=== PATIENT | female | born 1940 | race American Indian/Alaskan Native ===

== ENCOUNTER 2017-05-03 08:29 | Outpatient (CLI) | payer MEDICARE ==
--- NOTE | 2017-05-04 13:19 | PET Report ---
PET SB TO MT SUBSEQUENT: HISTORY: Restaging of breast cancer. TECHNIQUE: 13.0 millicuries F-18 FDG was administered intravenously. Noncontrast CT images and PET images were obtained from the skull base to the proximal thighs. Fused images were reviewed on a workstation. The patient's blood glucose level measured 124. COMPARISON: 05/05/14. FINDINGS: BRAIN: physiologic FDG uptake in the imaged brain. NECK: physiologic FDG uptake. MEDIASTINUM: physiologic FDG uptake. CHEST WALL: Stable right mastectomy changes. No recurrent chest wall or breast mass. LUNGS: physiologic FDG uptake. PLEURA/PERICARDIUM: physiologic FDG uptake. THORACIC LYMPH NODES: physiologic FDG uptake. HEPATOBILIARY: physiologic FDG uptake. Mean liver SUV measures 4.3 as opposed to 3.4 on the previous exam. Increased liver density is again noted and unchanged which is probably secondary to therapy. No new liver mass. PANCREAS: physiologic FDG uptake. SPLEEN: physiologic FDG uptake. ADRENAL GLANDS: physiologic FDG uptake. KIDNEYS/RENAL COLLECTING SYSTEMS: physiologic FDG uptake. BOWEL/MESENTERY: physiologic FDG uptake. PELVIC VISCERA: physiologic FDG uptake. ABDOMINAL/PELVIC LYMPH NODES: physiologic FDG uptake. MUSCULOSKELETAL: physiologic FDG uptake. IMPRESSION: Negative PET/CT. No evidence for disease recurrence or metastasis. Stable findings since 05/05/14.
== END 2017-05-03 08:30 | disposition home or self-care (01) ==
LOC: PET 08:29
DX: C50.911 Malignant neoplasm of unspecified site of right female breast (principal); Z90.11 Acquired absence of right breast and nipple; Z79.899 Other long term (current) drug therapy
CPT/HCPCS: 78815; 82962; A9552